=== PATIENT | female | born 1930 | race Caucasian/White ===

== ENCOUNTER → 2016-08-01 | Outpatient (CLI) | payer OTHER ==
[~2016-08-01] MED LIST: CALC600T10 OR; CLOP75TA28 PO; LEVO75TA47 PO; MAGN400T21 PO; MULT-777 OR
== END | disposition home or self-care (01) ==
LOC: Rad HDHVI 11:39
PROVIDERS: ATTEND Internal Medicine Cardiovascular Disease
DX: J18.9 Pneumonia, unspecified organism (principal)
CPT/HCPCS: 71250

== ENCOUNTER → 2016-08-09 | Outpatient (CLI) | payer OTHER | END | disposition home or self-care (01) | LOC: HDHVI->DVH 08:51 | PROVIDERS: ATTEND Internal Medicine Cardiovascular Disease | DX: I25.10 Atherosclerotic heart disease of native coronary artery without angina pectoris (principal) | CPT/HCPCS: 93306 ==

== ENCOUNTER → 2016-09-19 | Outpatient (CLI) | payer OTHER ==
[2016-09-19 09:15] VITALS: BP 125/70
[2016-09-19 09:45] VITALS: BP 132/66
[2016-09-19 12:17] LABS: Basophils # (auto) 0 uL; Basophils % (auto) 0.7 % (0.0-2.0); Eosinophils # (auto) 0 uL; Eosinophils % (auto) 0.7 % (0.0-7.0); Hematocrit 46.5 % (36.0-46.0); Hemoglobin 15.5 g/dL (12.2-16.2); Lymphocytes # (auto) 1.1 uL; Lymphocytes % (auto) 17.6 % (10.0-50.0); Mean Corpuscular Hemoglobin 29.6 pg (28.0-32.0); Mean Corpuscular Hgb Conc. 33.4 g/dL (32.0-36.0); Mean Corpuscular Volume 88.7 fL (80.0-100.0); Monocytes # (auto) 0.5 uL; Monocytes % (auto) 7.8 % (0.0-12.0); Neutrophils # (auto) 4.7 uL; Neutrophils % (auto) 73.2 % (37.0-80.0); Platelet Count (auto) 429 10^3/uL (140-450); Red Cell Distribution Width 15.2 % (11.6-16.0); White Blood Cell 6.5 10^3/uL (4.4-10.8)
[2016-09-19 12:34] LABS: BUN/Creatinine Ratio 14.2; Calcium 9.3 mg/dL (8.5-10.1); Potassium 3.7 mmol/L (3.5-5.1)
[2016-09-19 12:43] LABS: INR 1.03 (0.9-1.15); Partial Thromboplastin Time 27.4 sec (22.64-33.71); Prothrombin Time 11.1 sec (9.37-12.3)
== END | disposition home or self-care (01) ==
LOC: Rad HDHVI 09:05
PROVIDERS: ATTEND Internal Medicine Cardiovascular Disease
DX: I10 Essential (primary) hypertension (principal); D64.9 Anemia, unspecified; R79.1 Abnormal coagulation profile; Z01.812 Encounter for preprocedural laboratory examination
CPT/HCPCS: 36415; 71020; 80048; 85025; 85610; 85730; 93005; G0463

== ENCOUNTER 2016-09-20 12:15 | Inpatient (IN) | payer OTHER ==
[~2016-09-20] VITALS: Ht 172.7 cm; Wt 55.3 kg
[2016-09-20] MEDS ORDERED: fentaNYL CITRATE 100 MCG/2 ML VL ONE (12:47)
[2016-09-20] MEDS ORDERED: MIDAZOLAM HCL 1MG/1ML-2 ML VIAL ONE (12:48)
[2016-09-20] MEDS ORDERED: LIDOCAINE 2%HCL (LOCAL ANESTH.) INJ 20ML MDV ONE (12:48)
[2016-09-20] MEDS ORDERED: SODIUM CHL 0.9% 50 ML ONE (13:33)
[2016-09-20] MEDS ORDERED: ANGIOMAX 250 MG VIAL IV ONE (13:33)
[2016-09-20] MEDS ORDERED: IOHEXOL 350 MG/ML 100ML IJ ONE (13:34)
[2016-09-20] MEDS ORDERED: CLOPIDOGREL BISULFATE 75 MG TAB PO ONE (14:45)
[2016-09-20] MEDS ORDERED: SODIUM CHLORIDE 0.9% 1,000 ML IV SCH (15:08)
[2016-09-20] MEDS ORDERED: HYDROcodone-ACET 5/325MG TAB PO PRN (15:15)
[2016-09-20] MEDS ORDERED: MORPHINE SULF INJ 2 MG/ML SYRINGE 1ML IV PRN (15:15)
[2016-09-20] MEDS ORDERED: NITROGLYCERIN 0.4 MG SL TAB SL PRN (15:15)
[2016-09-20] MEDS ORDERED: ACETAMINOPHEN 500 MG TAB PO PRN (15:15)
[2016-09-20 17:00] VITALS: BP_SYST 103; BP_SYST 122; BP_DIAS 58; BP_DIAS 62
[2016-09-20 20:00] VITALS: BP 112/67
[2016-09-20 22:17] VITALS: BP 112/67
[2016-09-21 05:17] VITALS: BP 131/73
[2016-09-21] MEDS ORDERED: LEVOTHYROXINE SODIUM 25 MCG TAB PO SCH (07:00)
[2016-09-21 07:29] VITALS: BP 127/66
[2016-09-21] MEDS ORDERED: CALCIUM W/VIT D (600MG/400IU) TAB PO SCH (10:00)
[2016-09-21] MEDS ORDERED: MAGNESIUM OXIDE 400 MG TAB PO SCH (10:00)
[2016-09-21] MEDS ORDERED: CLOPIDOGREL BISULFATE 75 MG TAB PO SCH (10:00)
[2016-09-21 12:45] VITALS: BP 127/71
== END 2016-09-21 14:00 | disposition home or self-care (01) | DRG 247 ==
LOC: CATH 12:15 → TELE-WESTW 12:16
PROVIDERS: ADMIT Internal Medicine Cardiovascular Disease; ATTEND Internal Medicine Cardiovascular Disease
PROC: 027034Z Dilation of Coronary Artery, One Artery with Drug-eluting Intraluminal Device, Percutaneous Approach (ICD-10-PCS; principal; 2016-09-20)
PROC: 02713ZZ Dilation of Coronary Artery, Two Arteries, Percutaneous Approach (ICD-10-PCS; 2016-09-20)
PROC: 4A023N8 Measurement of Cardiac Sampling and Pressure, Bilateral, Percutaneous Approach (ICD-10-PCS; 2016-09-20)
PROC: B2111ZZ Fluoroscopy of Multiple Coronary Arteries using Low Osmolar Contrast (ICD-10-PCS; 2016-09-20)
DX: I25.10 Atherosclerotic heart disease of native coronary artery without angina pectoris (principal); I49.5 Sick sinus syndrome; Z95.0 Presence of cardiac pacemaker; I27.2 Other secondary pulmonary hypertension; Z92.3 Personal history of irradiation; Z88.2 Allergy status to sulfonamides; Z88.1 Allergy status to other antibiotic agents; Z88.8 Allergy status to other drugs, medicaments and biological substances
CPT/HCPCS: 92941; 93460; 99152; C1874; J2250

== ENCOUNTER → 2016-10-23 | Outpatient (CLI) | payer OTHER ==
[2016-10-23 16:21] LABS: Basophils # (auto) 0 uL; Basophils % (auto) 0.5 % (0.0-2.0); Eosinophils # (auto) 0.1 uL; Eosinophils % (auto) 1.5 % (0.0-7.0); Hematocrit 45.5 % (36.0-46.0); Hemoglobin 15.2 g/dL (12.2-16.2); Lymphocytes # (auto) 1.1 uL; Lymphocytes % (auto) 15.6 % (10.0-50.0); Mean Corpuscular Hemoglobin 30.8 pg (28.0-32.0); Mean Corpuscular Hgb Conc. 33.4 g/dL (32.0-36.0); Mean Corpuscular Volume 92.2 fL (80.0-100.0); Mean Platelet Volume 8.4 fL (7.4-10.4); Monocytes # (auto) 0.6 uL; Monocytes % (auto) 8.2 % (0.0-12.0); Neutrophils # (auto) 5.1 uL; Neutrophils % (auto) 74.2 % (37.0-80.0); Platelet Count (auto) 313 10^3/uL (140-450); White Blood Cell 6.8 10^3/uL (4.4-10.8)
== END | disposition home or self-care (01) ==
LOC: Rad HDHVI 09:57
PROVIDERS: ATTEND Internal Medicine Cardiovascular Disease
DX: E03.9 Hypothyroidism, unspecified (principal); D64.9 Anemia, unspecified
CPT/HCPCS: 36415; 84443; 85025; 93306

== ENCOUNTER → 2016-12-18 | Outpatient (CLI) | payer OTHER ==
[~2016-12-18] VITALS: Ht 172.7 cm; Wt 54.4 kg
[~2016-12-18] MED LIST changes: +HYDR-4663 PO; +SACU1TAB PO; +TRIA75TA55 PO
[2016-12-18 09:00] VITALS: BP 110/54
[2016-12-18 09:40] VITALS: BP 112/55
[2016-12-18 12:23] LABS: Basophils # (auto) 0 uL; Basophils % (auto) 0.6 % (0.0-2.0); CONDITION Y; Eosinophils # (auto) 0.1 uL; Eosinophils % (auto) 1.7 % (0.0-7.0); Hematocrit 44.2 % (36.0-46.0); Hemoglobin 14.7 g/dL (12.2-16.2); Lymphocytes # (auto) 1.1 uL; Lymphocytes % (auto) 19.4 % (10.0-50.0); Mean Corpuscular Hemoglobin 31.8 pg (28.0-32.0); Mean Corpuscular Hgb Conc. 33.3 g/dL (32.0-36.0); Mean Corpuscular Volume 95.3 fL (80.0-100.0); Mean Platelet Volume 9.2 fL (7.4-10.4); Monocytes # (auto) 0.4 uL; Monocytes % (auto) 7.2 % (0.0-12.0); Neutrophils % (auto) 71.1 % (37.0-80.0); Platelet Count (auto) 295 10^3/uL (140-450); Red Cell Distribution Width 14.3 % (11.6-16.0); White Blood Cell 5.6 10^3/uL (4.4-10.8)
[2016-12-18 12:30] LABS: Partial Thromboplastin Time 28.4 sec (22.64-33.71); Prothrombin Time 10.9 sec (9.37-12.3)
[2016-12-18 12:34] LABS: Potassium 3.7 mmol/L (3.5-5.1)
== END | disposition home or self-care (01) ==
LOC: CHF HDHVI 08:52
PROVIDERS: ATTEND Internal Medicine Cardiovascular Disease
DX: Z01.818 Encounter for other preprocedural examination (principal); Z01.812 Encounter for preprocedural laboratory examination; I25.5 Ischemic cardiomyopathy; I25.10 Atherosclerotic heart disease of native coronary artery without angina pectoris; I49.5 Sick sinus syndrome; I10 Essential (primary) hypertension; D64.9 Anemia, unspecified; R79.1 Abnormal coagulation profile; Z95.0 Presence of cardiac pacemaker
CPT/HCPCS: 36415; 80048; 85025; 85610; 85730; 93005; G0463

== ENCOUNTER 2016-12-20 10:21 | Inpatient (IN) | payer OTHER ==
[~2016-12-20] VITALS: Ht 172.7 cm; Wt 65.2 kg
[2016-12-20] MEDS ORDERED: ceFAZolin 1GM/50ML D5W 50 ML IV ONE ×2 (11:06→11:15)
[2016-12-20] MEDS ORDERED: VANCOMYCIN HCL 1000 MG VL ONE (11:06)
[2016-12-20] MEDS ORDERED: VANCOMYCIN 1GM/250ML D5W 250 ML IV ONE (11:06)
[2016-12-20] MEDS ORDERED: IOHEXOL 350 MG/ML 100ML IJ ONE (11:08)
[2016-12-20] MEDS ORDERED: LIDOCAINE 2%HCL (LOCAL ANESTH.) INJ 20ML MDV ONE (11:08)
[2016-12-20] MEDS ORDERED: VANCOMYCIN HCL 1000 MG VL IR ONE (11:15)
[2016-12-20] MEDS ORDERED: fentaNYL CITRATE 100 MCG/2 ML VL ONE (12:22)
[2016-12-20] MEDS ORDERED: MIDAZOLAM HCL 1MG/1ML-2 ML VIAL ONE (12:22)
[2016-12-20] MEDS ORDERED: VANCOMYCIN 1GM/250ML D5W 250 ML IV SCH (13:00)
[2016-12-20] MEDS ORDERED: SODIUM CHLORIDE 0.9% 1,000 ML IV ONE (14:13)
[2016-12-20] MEDS ORDERED: NITROGLYCERIN 0.4 MG SL TAB SL PRN (14:15)
[2016-12-20] MEDS ORDERED: MORPHINE SULF INJ 2 MG/ML SYRINGE 1ML IV PRN (14:15)
[2016-12-20] MEDS ORDERED: ACETAMINOPHEN 325 MG TAB PO PRN (14:15)
[2016-12-20] MEDS: HYDROcodone-ACET 5/325MG TAB PO PRN ×2 (17:34→21:37)
[2016-12-20 22:00] VITALS: BP 131/73
[2016-12-21] MEDS: HYDROcodone-ACET 5/325MG TAB PO PRN ×3 (01:40→20:30)
[2016-12-21] MEDS: VANCOMYCIN 1GM/250ML D5W 250 ML IV SCH ×2 (02:08→13:00)
[2016-12-21] MEDS ORDERED: FUROSEMIDE 20 MG/2 ML VIAL IV ONE (03:15)
[2016-12-21] MEDS ORDERED: HYDROmorphone HCL 2 MG/ML VL IV ONE (03:15)
[2016-12-21 05:00] VITALS: BP 122/66
[2016-12-21] MEDS: LEVOTHYROXINE SODIUM 25 MCG TAB PO SCH (05:48)
[2016-12-21 09:49] VITALS: BP 133/72
[2016-12-21] MEDS: SACUBITRIL VALSARTAN PO SCH (10:00)
[2016-12-21] MEDS ORDERED: TRIAMTERENE/HCTZ 75/50MG TABLET PO SCH (10:00)
[2016-12-21] MEDS: MULTIPLE VITAMINS W/ MINERALS TAB PO SCH (10:33)
[2016-12-21] MEDS: MAGNESIUM OXIDE 400 MG TAB PO SCH (10:33)
[2016-12-21 13:00] VITALS: BP 103/59
[2016-12-21] MEDS: HYDROmorphone HCL 2 MG/ML VL IV PRN (13:03)
[2016-12-21 16:38] VITALS: BP 125/71
[2016-12-21 21:21] VITALS: BP 131/70
[2016-12-22 05:00] VITALS: BP 124/61
[2016-12-22] MEDS: LEVOTHYROXINE SODIUM 25 MCG TAB PO SCH (06:37)
[2016-12-22] MEDS: HYDROcodone-ACET 5/325MG TAB PO PRN (07:19)
[2016-12-22 08:00] VITALS: BP 120/67
[2016-12-22] MEDS: SACUBITRIL VALSARTAN PO SCH (10:00)
[2016-12-22] MEDS: TRIAMTERENE/HCTZ 37.5/25 MG CAP PO SCH (10:49)
[2016-12-22] MEDS: MAGNESIUM OXIDE 400 MG TAB PO SCH (10:49)
[2016-12-22] MEDS: MULTIPLE VITAMINS W/ MINERALS TAB PO SCH (10:49)
[2016-12-22 12:00] VITALS: BP 141/72
[2016-12-22 16:55] VITALS: BP 131/83
[2016-12-22] MEDS: HYDROmorphone HCL 2 MG/ML VL IV PRN (19:08)
[2016-12-22 20:58] VITALS: BP 120/65
[2016-12-23 05:00] VITALS: BP 122/66
[2016-12-23] MEDS: LEVOTHYROXINE SODIUM 25 MCG TAB PO SCH (06:18)
[2016-12-23] MEDS: SACUBITRIL VALSARTAN PO SCH (08:45)
[2016-12-23] MEDS: TRIAMTERENE/HCTZ 37.5/25 MG CAP PO SCH (08:46)
[2016-12-23] MEDS: MULTIPLE VITAMINS W/ MINERALS TAB PO SCH (08:47)
[2016-12-23] MEDS: MAGNESIUM OXIDE 400 MG TAB PO SCH (08:47)
[2016-12-23 09:00] VITALS: BP 118/66
[2016-12-23 12:47] VITALS: BP 119/70
[2016-12-23 14:19] LABS: Basophils # (auto) 0 uL; Basophils % (auto) 0.2 % (0.0-2.0); CONDITION Y; Eosinophils # (auto) 0.1 uL; Eosinophils % (auto) 1.2 % (0.0-7.0); Hematocrit 41.8 % (36.0-46.0); Hemoglobin 14.3 g/dL (12.2-16.2); Lymphocytes # (auto) 0.9 uL; Lymphocytes % (auto) 8.2 % (10.0-50.0); Mean Corpuscular Hemoglobin 31.8 pg (28.0-32.0); Mean Corpuscular Hgb Conc. 34.3 g/dL (32.0-36.0); Mean Corpuscular Volume 92.6 fL (80.0-100.0); Mean Platelet Volume 8.2 fL (7.4-10.4); Monocytes # (auto) 0.8 uL; Monocytes % (auto) 8.1 % (0.0-12.0); Neutrophils # (auto) 8.6 uL; Neutrophils % (auto) 82.3 % (37.0-80.0); Platelet Count (auto) 174 10^3/uL (140-450); Red Cell Distribution Width 13.7 % (11.6-16.0); White Blood Cell 10.4 10^3/uL (4.4-10.8)
[2016-12-23 14:48] LABS: BUN/Creatinine Ratio 20.6; Calcium 8.7 mg/dL (8.5-10.1); Potassium 3.5 mmol/L (3.5-5.1)
[2016-12-23] MEDS ORDERED: SODIUM CHL 3% 250 ML IV ONE (15:45)
[2016-12-23 16:32] LABS: B-Type Natriuretic Peptide 73.5 pg/mL (0-100); Temperature: 22.2 C (20.0-25.0)
[2016-12-23 16:46] VITALS: BP 139/73
[2016-12-23] MEDS: BOOST 8 ounces PO SCH ×2 (18:00→22:00)
[2016-12-23] MEDS: HYDROmorphone HCL 2 MG/ML VL IV PRN (20:19)
[2016-12-23 21:32] VITALS: BP 124/73
[2016-12-24] VITALS (7 sets, daily range): BP systolic 102–134; BP diastolic 51–70
[2016-12-24] MEDS: BOOST 8 ounces PO SCH ×3 (05:33→21:35)
[2016-12-24] MEDS: LEVOTHYROXINE SODIUM 25 MCG TAB PO SCH (06:03)
[2016-12-24 07:43] LABS: BUN/Creatinine Ratio 23.5; Calcium 8.5 mg/dL (8.5-10.1); Potassium 3.4 mmol/L (3.5-5.1)
[2016-12-24 07:45] LABS: Bilirubin, Total 0.9 mg/dL (0.2-1.0); Total Protein 5.9 g/dL (6.4-8.2)
[2016-12-24] MEDS: SACUBITRIL VALSARTAN PO SCH (10:00)
[2016-12-24] MEDS ORDERED: fentaNYL CITRATE 100 MCG/2 ML VL ONE (10:13)
[2016-12-24] MEDS ORDERED: MIDAZOLAM HCL 1MG/1ML-2 ML VIAL ONE (10:13)
[2016-12-24] MEDS ORDERED: LIDOCAINE 2%HCL (LOCAL ANESTH.) INJ 20ML MDV ONE (10:20)
[2016-12-24] MEDS: MULTIPLE VITAMINS W/ MINERALS TAB PO SCH (12:26)
[2016-12-24] MEDS: MAGNESIUM OXIDE 400 MG TAB PO SCH (12:26)
[2016-12-24] MEDS: TRIAMTERENE/HCTZ 37.5/25 MG CAP PO SCH (12:26)
[2016-12-24] MEDS: HYDROcodone-ACET 5/325MG TAB PO PRN (14:15)
[2016-12-24] MEDS ORDERED: POTASSIUM CHL 10% (20 MEQ/15ML) ORAL SOLN PO ONE (17:15)
[2016-12-24] MEDS: HYDROmorphone HCL 2 MG/ML VL IV PRN (20:18)
[2016-12-25 05:00] VITALS: BP 124/62
[2016-12-25] MEDS: BOOST 8 ounces PO SCH ×3 (06:01→18:00)
[2016-12-25] MEDS: LEVOTHYROXINE SODIUM 25 MCG TAB PO SCH (06:31)
[2016-12-25 09:00] VITALS: BP 100/56
[2016-12-25] MEDS: SACUBITRIL VALSARTAN PO SCH (10:00)
[2016-12-25] MEDS: MAGNESIUM OXIDE 400 MG TAB PO SCH (11:15)
[2016-12-25] MEDS: MULTIPLE VITAMINS W/ MINERALS TAB PO SCH (11:15)
[2016-12-25 12:54] VITALS: BP 109/61
== END 2016-12-25 18:30 | disposition home or self-care (01) | DRG 224 ==
LOC: CATH 10:21 → TELE-E-ADS 10:22 → TELE-WESTW 17:02 → TELE-CENTR 17:26
PROVIDERS: ADMIT Internal Medicine Cardiovascular Disease; ATTEND Internal Medicine Cardiovascular Disease
PROC: 0JH609Z Insertion of Cardiac Resynchronization Defibrillator Pulse Generator into Chest Subcutaneous Tissue and Fascia, Open Approach (ICD-10-PCS; principal; 2016-12-20)
PROC: 02HL3KZ Insertion of Defibrillator Lead into Left Ventricle, Percutaneous Approach (ICD-10-PCS; 2016-12-20)
PROC: 02HK3KZ Insertion of Defibrillator Lead into Right Ventricle, Percutaneous Approach (ICD-10-PCS; 2016-12-20)
PROC: 4A023N6 Measurement of Cardiac Sampling and Pressure, Right Heart, Percutaneous Approach (ICD-10-PCS; 2016-12-20)
PROC: 0JPT0PZ Removal of Cardiac Rhythm Related Device from Trunk Subcutaneous Tissue and Fascia, Open Approach (ICD-10-PCS; 2016-12-20)
PROC: 0W9B30Z Drainage of Left Pleural Cavity with Drainage Device, Percutaneous Approach (ICD-10-PCS; 2016-12-20)
PROC: 02H63KZ Insertion of Defibrillator Lead into Right Atrium, Percutaneous Approach (ICD-10-PCS; 2016-12-20)
DX: I42.0 Dilated cardiomyopathy (principal); I50.23 Acute on chronic systolic (congestive) heart failure; J93.9 Pneumothorax, unspecified; E87.1 Hypo-osmolality and hyponatremia; I49.5 Sick sinus syndrome; Z71.3 Dietary counseling and surveillance
CPT/HCPCS: 10022; 36415; 71010; 77012; 80048; 80053; 83880; 85025; 93005; 99152; A4223; J0690; J2250

== ENCOUNTER → 2017-05-06 | Outpatient (CLI) | payer OTHER ==
[~2017-05-06] MED LIST changes: -HYDR-4663 PO; +HYDR-4683 PO
== END | disposition home or self-care (01) ==
LOC: Rad HDHVI 09:47
PROVIDERS: ATTEND Internal Medicine Cardiovascular Disease
DX: I08.2 Rheumatic disorders of both aortic and tricuspid valves (principal); I42.0 Dilated cardiomyopathy; I50.43 Acute on chronic combined systolic (congestive) and diastolic (congestive) heart failure
CPT/HCPCS: 93306